=== PATIENT | female | born 1960 | race Caucasian/White ===

== ENCOUNTER 2018-07-05 07:23 | Day surgery (SDC) | payer BC ==
[2018-07-05] VITALS (8 sets, daily range): BP systolic 117–137; BP diastolic 63–80; PULSE 70–78; RESP 13–22; Ht 160 cm; Wt 65.0 kg
[~2018-07-05] VITALS: Ht 160 cm; Wt 65.0 kg
[~2018-07-05 07:23] MED LIST: PROPOFOL 200 MG INJ ONE
[2018-07-05] MEDS ORDERED: METO-335 PO (08:50)
[2018-07-05] MEDS ORDERED: vitamin D PO (08:50)
[2018-07-05] MEDS ORDERED: LISI10TA2 PO (08:50)
[2018-07-05] MEDS ORDERED: OMEP20CA16 PO (08:50)
[2018-07-05] MEDS ORDERED: FOLI-49 PO (08:50)
[2018-07-05] MEDS ORDERED: vitamin B12 SUBCUTANE (08:50)
[2018-07-05] MEDS ORDERED: PANT40TA4 PO (08:50)
--- NOTE | 2018-07-05 09:42 | PREAC ---
Date/Time of Note Date/Time of Note DATE: 07/05/18 TIME: 09:41 Anesthesia Eval and Record Evaluation Time Pre-Procedure Interview DATE: 07/05/18 TIME: 09:41 Age 58 Sex female NPO: 8 hrs Preoperative diagnosis gastric nodule Planned procedure EGD Past Medical History Past Medical History: Includes Cardio: HTN, Dyslipidemia GI: GERD Heme: Anemia Psych: Anxiety Surgery & Anesthesia Issues No known issue Meds Anticoagulation: No Beta [place] within 24 hr: No Reason Beta [place] not given: Pt. not on B-[place] Reported Medications [vitamin B12 ] No Conflict Check, SUBCUTANE weekly 07/05/18 [vitamin D] No Conflict Check, PO DAILY 07/05/18 Folic Acid* (Folic Acid*) 1 Mg Tablet, 1 MG PO DAILY, TAB 07/05/18 Metoprolol Succinate* (Toprol XL*) 25 Mg Tab.sr.24h, 25 MG PO DAILY, #30 TAB 07/05/18 Lisinopril* (Lisinopril*) 10 Mg Tablet, 10 MG PO DAILY, #30 TAB 07/05/18 Pantoprazole* (Pantoprazole*) 40 Mg Tablet.dr, 40 MG PO DAILY, TAB 07/05/18 Omeprazole* (Omeprazole*) 20 Mg Capsule.dr, 20 MG PO DAILY, #30 CAP 07/05/18 Meds reviewed: Yes Allergies Coded Allergies: Penicillins (Verified Allergy, Unknown, 07/05/18) amoxicillin (Verified Allergy, Unknown, 07/05/18) clarithromycin (Verified Allergy, Unknown, 07/05/18) Allergies Reviewed: Yes Labs/Studies Labs Reviewed: Reviewed by anesthesiologist test: Negative Pre-procedure Exam Airway: Adequate mouth opening, Adequate thyromental dist Mallampati: Mallampati II Teeth: Normal Lung: Normal Heart: Normal ASA Physical Status ASA physical status: 3 Emergency: None Planned Anesthetic General/MAC: Mask, MAC Pre-operative Attestations Prior to commencing anesthesia and surgery, the patient was re-evaluated, there was verification of: *The patient's identity *The results of appropriate recent lab work and preoperative vital signs *The above evaluation not changing prior to induction *Anesthetic plan, risk benefits, alternative and complications discussed with patient/family; questions answered; patient/family understands, accepts and wish es to proceed. NADIR SOLIS Jul 05, 2018 09:42
[2018-07-05] MEDS ORDERED: LIDOCAINE 100 MG SYRINGE ONE (09:45)
[2018-07-05] MEDS ORDERED: PROPOFOL 60 ML ONE (09:45)
--- NOTE | 2018-07-05 09:46 | HPN ---
Date/Time of Note Date/Time of Note DATE: 07/05/18 TIME: 09:46 Interval H&P Admission Note Pt. seen H&P reviewed: No system changes ERIC DUNBAR Jul 05, 2018 09:46
--- NOTE | 2018-07-05 13:36 | PAC ---
Date/Time of Note Date/Time of Note DATE: 07/05/18 TIME: 13:35 Post-Anesthesia Notes Post-Anesthesia Note Last documented vital signs Vital Signs Date Temp Pulse Resp B/P (MAP) Pulse Ox O2 O2 Flow FiO2 Time Delivery Rate 07/05/18 97.6 73 18 132/77 100 10:40 (95) 07/05/18 Room Air 10:35 07/05/18 2.0 10:06 Activity: WNL Respiratory function: WNL Cardiovascular function: WNL Mental status: Baseline Pain reasonably controlled: Yes Hydration appropriate: Yes Nausea/Vomiting absent: Yes NADIR SOLIS Jul 05, 2018 13:35
== END 2018-07-05 13:33 | disposition home or self-care (01) ==
LOC: GIL 07:23
PROVIDERS: ATTEND Internal Medicine Gastroenterology
DX: K31.89 Other diseases of stomach and duodenum (principal)
CPT/HCPCS: 43239; 88305; 88312; J2001; Z7610